=== PATIENT | male | born 1990 | race Caucasian/White ===

== ENCOUNTER 2018-08-22 19:49 | Observation (INO) ==
[2018-08-22] MEDS: 0.9 % Sodium Chloride 1,000 ML IVC SCH ×2 (21:45→22:24)
--- NOTE | 2018-08-22 21:46 | Emergency Department Note ---
Disposition Clinical Impression: Dehydration, Alcoholism Acute renal failure (ARF) Qualifiers: Acute renal failure type: unspecified Qualified Code(s): N17.9 - Acute kidney failure, unspecified Hepatitis C Qualifiers: Viral hepatitis chronicity: acute Hepatic coma status: without hepatic coma Qualified Code(s): B17.10 - Acute hepatitis C without hepatic coma Disposition: Admitted As Inpatient Condition: Fair Referrals: Anaya Melo MD [Primary Care Provider] - Forms: ED Satisfaction Letter Time of Disposition: 22:55 General Adult HPI - General Chief complaint: ED Nausea/Vomiting/Diarrhea Stated complaint: Shaking / Dehydration-NV Time Seen by Provider: 08/22/18 21:07 Source: patient Limitations: no limitations Nursing Notes Reviewed: Yes Vital Signs Reviewed: Yes - History of Present Illness HPI Narrative: He was working outside and got overheated and left work at 4:00 and wanted to try to rehydrate with fluids as well as with Gatorade but every time he drank he vomited and now he has generalized shaking. He does have a history of alcoholism as well as liver failure last year. He does not have any blood in the vomit, urine or stool. No known fevers but he did feel cold. He does not have any chest pain or shortness of breath. Social history: Smoker, alcohol, no drugs Pain Scale: 3 - Related Data Home Medications Medication Instructions Recorded Confirmed No Known Home Drugs 08/22/18 08/22/18 Allergies Allergy/AdvReac Type Severity Reaction Status Date / Time Penicillins Allergy Hives Verified 08/22/18 19:53 All systems ED: reviewed and negative except as stated. Past Medical History - Past Medical History Medical history: Reports: asthma, other Surgical history: Reports: no surgical history Psychiatric history: Reports: no psych history - Social History Smoking Status: Current every day smoker Smokeless Tobacco Status: No Alcohol use: Reports: heavy, recent Drug use: Reports: marijuana Physical Exam CONSTITUTIONAL: Alert and oriented X3, breathing comfortably, generalized tremulous appearance HEAD: Normocephalic; atraumatic. EYES: PERRL, no scleral icterus. NOSE: The nose is normal in appearance without rhinorrhea RESP: Normal chest excursion with respiration; breath sounds clear and equal bilaterally; no wheezes, rhonchi, or rales CARD: Regular rhythm, without murmurs, rub or gallop ABD: Non-distended; non-tender, soft,without rigidity, rebound or guarding SKIN: Normal for age and race; warm and dry; no apparent lesions - General Limitations: no limitations General appearance: alert Course Vital Signs Temperature 98 F 08/22/18 19:57 Pulse Rate 130 08/22/18 19:57 Respiratory Rate 24 08/22/18 19:57 Blood Pressure 148/98 08/22/18 19:57 O2 Sat by Pulse Oximetry 96 08/22/18 19:57 Temperature 98 F 08/22/18 19:57 Pulse Rate 130 08/22/18 19:57 Respiratory Rate 24 08/22/18 19:57 Blood Pressure 148/98 08/22/18 19:57 O2 Sat by Pulse Oximetry 96 08/22/18 19:57 Oxygen Delivery Oxygen Delivery Room Air Medical Decision Making - MDM Narrative Medical decision making narrative: I do have labs ordered including liver function tests and coags and ammonia level and the patient will receive 2 L IV fluid bolus, likely these effects are from the heat. Patient is otherwise bright and alert and well in appearance. I will reassess the patient. [id number] I did review the patient's test results a does have acute renal failure with significantly elevated creatinine level and he has not had this based on past creatinine levels that we have checked and for that reason the patient will be admitted for IV fluids and recheck. Does also some metabolic acidosis with a low serum bicarbonate level. I did see him again. Concern is the only dehydration but also his concomitant alcoholism and history of hepatitis C. He does have a primary care doctor but has not seen a ore digger. Patient will be admitted to the hospital. The hospitalist is paged. 1 I did speak with the hospitalist accepts the patient for admission. I did write for maintenance fluids. The patient has received 2 L IV fluid bolus. With this other medical problems will have her admitted and can follow his renal failure. This is likely prerenal from dehydration from the heat. [id number] - Medical Records Medical records reviewed: Yes I reviewed the patient's medical records. - Lab Data Lab results reviewed: Yes I reviewed the patient's lab results. Result diagrams: 08/22/18 21:29 08/22/18 21:30 Lab Results 08/22/18 08/22/18 08/22/18 Range/Units 21:29 21:30 21:30 WBC 16.2 H (4.3-11.1) K/mcL RBC 5.25 (4.19-5.50) M/mcL Hgb 18.2 H (12.9-16.9) g/dL Hct 51.1 H (37.5-50.1) % MCV 97.3 (83.0-100.0) fL MCH 34.7 H (28.0-33.3) pg MCHC 35.6 H (31.6-35.5) g/dL RDW 12.3 (11.5-14.5) % Plt Count 269 (140-400) K/mcL MPV 10.1 (9.4-12.4) fL PT (9.4-12.1) Seconds INR Sodium 136 (136-145) mEq/L Potassium 4.2 (3.5-5.1) mEq/L Chloride 94 L (98-107) mEq/L Carbon Dioxide 18 L (23-29) mEq/L BUN 12 (6-20) mg/dL Creatinine 1.63 H (0.70-1.30) mg/dL Est GFR ( Amer) > 60 (> 60) Est GFR (Non-Af Amer) 50 L (> 60) BUN/Creatinine Ratio 7 (6-26) Glucose 118 H (70-105) mg/dL Calculated Osmolality 283 (280-300) Lactic Acid (0.5-2.2) mmol/L Calcium 11.7 H (8.6-10.3) mg/dL Total Bilirubin 1.2 H (0.3-1.0) mg/dL Direct Bilirubin 0.3 H (0.0-0.2) mg/dL Indirect Bilirubin 0.9 (0.0-1.2) mg/dL AST 153 H (13-39) Units/L ALT 146 H (7-52) Units/L Alkaline Phosphatase 77 (34-104) Units/L Ammonia 53 (16-53) mcmol/L Serum Total Protein 10.0 H (6.4-8.9) g/dL Albumin 5.6 (3.5-5.7) g/dL Globulin 4.4 H (2.4-3.5) g/dL Albumin/Globulin Ratio 1.3 (1.1-2.2) Lipase 18 (11-82) Units/L 08/22/18 08/22/18 Range/Units 21:30 21:34 WBC (4.3-11.1) K/mcL RBC (4.19-5.50) M/mcL Hgb (12.9-16.9) g/dL Hct (37.5-50.1) % MCV (83.0-100.0) fL MCH (28.0-33.3) pg MCHC (31.6-35.5) g/dL RDW (11.5-14.5) % Plt Count (140-400) K/mcL MPV (9.4-12.4) fL PT 10.8 (9.4-12.1) Seconds INR 1.0 Sodium (136-145) mEq/L Potassium (3.5-5.1) mEq/L Chloride (98-107) mEq/L Carbon Dioxide (23-29) mEq/L BUN (6-20) mg/dL Creatinine (0.70-1.30) mg/dL Est GFR ( Amer) (> 60) Est GFR (Non-Af Amer) (> 60) BUN/Creatinine Ratio (6-26) Glucose (70-105) mg/dL Calculated Osmolality (280-300) Lactic Acid 3.6 H (0.5-2.2) mmol/L Calcium (8.6-10.3) mg/dL Total Bilirubin (0.3-1.0) mg/dL Direct Bilirubin (0.0-0.2) mg/dL Indirect Bilirubin (0.0-1.2) mg/dL AST (13-39) Units/L ALT (7-52) Units/L Alkaline Phosphatase (34-104) Units/L Ammonia (16-53) mcmol/L Serum Total Protein (6.4-8.9) g/dL Albumin (3.5-5.7) g/dL Globulin (2.4-3.5) g/dL Albumin/Globulin Ratio (1.1-2.2) Lipase (11-82) Units/L
[2018-08-22 21:55] LABS: Prothrombin Time 10.8 Seconds (9.4-12.1)
[2018-08-22 22:04] LABS: BUN/Creatinine Ratio 7 (6-26); Blood Urea Nitrogen 12 mg/dL (6-20); Carbon Dioxide 18 mEq/L (23-29); Chloride 94 mEq/L (98-107); Glucose 118 mg/dL (70-105); Potassium 4.2 mEq/L (3.5-5.1); Sodium 136 mEq/L (136-145); eGFR For African Americans > 60 (> 60); eGFR For Non-African Americans 50 (> 60)
[2018-08-22 22:05] LABS: Alanine Aminotransferase 146 Units/L (7-52); Albumin 5.6 g/dL (3.5-5.7); Albumin/Globulin Ratio 1.3 (1.1-2.2); Alkaline Phosphatase 77 Units/L (34-104); Aspartate Amino Transferase 153 Units/L (13-39); Bilirubin,Direct 0.3 mg/dL (0.0-0.2); Bilirubin,Indirect 0.9 mg/dL (0.0-1.2); Bilirubin,Total 1.2 mg/dL (0.3-1.0); Calcium 11.7 mg/dL (8.6-10.3); Globulin 4.4 g/dL (2.4-3.5); Lipase 18 Units/L (11-82); Osmolality,Calculated 283 (280-300)
[2018-08-22 22:25] LABS: Hematocrit 51.1 % (37.5-50.1); Hemoglobin 18.2 g/dL (12.9-16.9); Mean Corpuscular HGB Conc 35.6 g/dL (31.6-35.5); Mean Corpuscular Hemoglobin 34.7 pg (28.0-33.3); Mean Corpuscular Volume 97.3 fL (83.0-100.0); Mean Platelet Volume 10.1 fL (9.4-12.4); Platelet Count 269 K/mcL (140-400); Red Blood Count 5.25 M/mcL (4.19-5.50); Red Cell Distribution Width 12.3 % (11.5-14.5); White Blood Count 16.2 K/mcL (4.3-11.1)
[2018-08-22] MEDS ORDERED: 0.9 % Sodium Chloride 1,000 ML IVC ONE (23:27)
[2018-08-23] MEDS: 0.9 % Sodium Chloride 1,000 ML IVC SCH ×5 (00:07→00:30)
[2018-08-23 01:50] LABS: Bilirubin,Urine Small (Negative); Blood,Urine Negative (Negative); Clarity,Urine Cloudy (Clear); Color,Urine Yellow (Yellow); Glucose,Urine (UA) Normal (Normal); Ketones,Urine 15 mg/dL (Negative); Leukocyte Esterase,Urine Negative (Negative); Nitrite,Urine Negative (Negative); Protein,Urine 100 mg/dL (Neg-Trace); Specific Gravity,Urine 1.008 (1.010-1.025); Urobilinogen,Urine Normal (Normal)
[2018-08-23 01:53] LABS: Bacteria,Urine None Seen per hpf (None-Few); Squamous Epithelial Cell,Urine Many per lpf (None-Few)
[2018-08-23 02:05] LABS: Hyaline Casts,Urine Many per lpf (None-Few); Yeast,Urine Few per hpf (None Seen)
[2018-08-23] MEDS ORDERED: *HR* LORazepam 2 MG/ML VIAL IVP PRN ×3 (04:51)
[2018-08-23] MEDS ORDERED: Naloxone 0.4 MG/ML INJ IVP PRN (06:01)
--- NOTE | 2018-08-23 06:08 | Internal Med History&Physical ---
Date of Encounter: 08/23/18 Time of Encounter: 05:47 Internal Medicine - H&P: HPI Chief complaint: KWASI Admitted From: Emergency Dept Plans for Post Hospital Care: Home History of present illness: Mr. Goodman is a 28 year old male Patient presented to the emergency room with vomiting, weakness and shakes that began after he got off work at around 4 PM. 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 He did not drink very much fluids today. He has a history of alcoholism as well as hepatitis C. Last year he had similar presentation to this and came to the emergency department and was eventually transferred to [facility] for acute liver failure. He was worried that this is happening to him again so he came to the ER for further evaluation. In the ER patient's initial vital signs demonstrated a heart rate of 130, respiratory rate of 24 CBC was notable for white count of 16.2 BMP showed a creatinine of 1.63 and a GFR of 50 Initial lactic acid was 3.6 Total bilirubin 1.2 AST 153 ALT 146 Alkaline phosphatase 77 Ammonia 53 Urinalysis: Small bilirubin, negative nitrite, negative leukocyte esterase, 5-15 white blood cells. Chest x-ray showed no acute cardiopulmonary process Patient received 1 L of IV fluids, and was admitted to the hospital for further management. Upon my evaluation, patient is resting comfortably in the hospital bed in no acute distress. He denies chest pain, dull pain, nausea, vomiting, diarrhea and constipation. He is a heavy alcohol user, stating he drinks about 18 beers per day. He also smokes about 1-2 packs of cigarettes daily. He denies significant family medical history, aside from his mother having lupus. He does not know his father. He is a DNR/DNI. He does not take any medications regularly aside from an albuterol inhaler on occasion. Past Med Surg Social Fam HX - Past Medical History Medical history: asthma, other Additional medical history: liver failure Psychiatric history: no psych history - Past Surgical History Surgical History: appendectomy - Social History Smoking Status: Current every day smoker Packs per day: 1.5 Smokeless Tobacco Status: No Alcohol use: heavy, recent Drug use: marijuana - Family History Mother Hx Family Autoimmune Disorders: Yes (LUPUS) Internal Medicine - H&P: Meds No Known Home Drugs 08/22/18 [History] Allergy/AdvReac Type Severity Reaction Status Date / Time Penicillins Allergy Hives Verified 08/22/18 19:53 All Systems PM: A 10-system review of systems was performed and is negative for pertinent findings except as documented above in the HPI. - Constitutional Vitals: Temp Pulse Resp BP Pulse Ox 98.2 F 89 16 115/75 96 08/23/18 05:18 08/23/18 05:18 08/23/18 05:18 08/23/18 05:18 08/23/18 05:18 General appearance: Present: cooperative, A&O X 3, pleasant, no acute distress, answers questions appropriately Exam: - - Head Head exam: Present: normal inspection - Eye Eye exam: Present: EOMI, normal appearance - Respiratory Respiratory exam: Present: wheezes. Absent: CTAB, rales, respiratory distress, rhonchi - Cardiovascular Cardiovascular exam: Present: RRR. Absent: diastolic murmur, systolic murmur - GI/Abdominal GI/Abdominal exam: Present: normal bowel sounds, soft. Absent: tenderness - Extremities Exam Extremities exam: Present: warm, radial pulses palpable and symmetrical. Absent: pedal edema, tenderness Additional comments: Upper extremity tremor bilaterally - Neurological Exam Neurological exam: Present: no focal deficits, strengths equal and symetr throughout. Absent: motor sensory deficit, facial droop, speech deficit Additional comments: Tremor bilaterally in upper extremities - Skin Skin exam: Present: dry, normal color, warm Additional comments: Redness of sun exposed skin Internal Med - H&P Results - Labs CBC & Chem 7: 08/22/18 21:29 08/22/18 21:30 Labs: Short CBC 08/22/18 Range/Units 21:29 WBC 16.2 H (4.3-11.1) K/mcL Hgb 18.2 H (12.9-16.9) g/dL Hct 51.1 H (37.5-50.1) % Plt Count 269 (140-400) K/mcL BMP 08/22/18 21:30 Sodium 136 Potassium 4.2 Chloride 94 L Carbon Dioxide 18 L BUN 12 Creatinine 1.63 H Glucose 118 H Calcium 11.7 H Liver Function 08/22/18 Range/Units 21:30 Total Bilirubin 1.2 H (0.3-1.0) mg/dL Direct Bilirubin 0.3 H (0.0-0.2) mg/dL AST 153 H (13-39) Units/L ALT 146 H (7-52) Units/L Alkaline Phosphatase 77 (34-104) Units/L Albumin 5.6 (3.5-5.7) g/dL Urine 08/23/18 Range/Units 01:25 Urine Color Yellow (Yellow) Urine Clarity Cloudy A (Clear) Urine pH 7.0 (5.0-8.0) pH Units Ur Specific [place] 1.008 L (1.010-1.025) Urine Protein 100 H (Neg-Trace) mg/dL Urine Glucose (UA) Normal (Normal) mg/dL - Impressions ITS Impressions Chest X-Ray 08/22/18 21:09 IMPRESSION: No acute cardiopulmonary process. D/ / Alexi Puentes MD / Alexi Puentes MD Interpreting Provider: Alexi Puentes MD - Assessment and Plan (1) Acute renal failure (ARF) Current Visit: Yes Status: Acute Assessment and plan: Likely secondary to dehydration. Patient initially had elevated lactic acid, creatinine, white count as well as heart rate/respiratory rate. Likely all related to dehydration. Patient was given 1 L of IV fluids and was started on IV fluids at 150 per hour. Repeat labs in the morning Continue to monitor vital signs Qualifiers: Acute renal failure type: unspecified Qualified Code(s): N17.9 - Acute kidney failure, unspecified (2) Nicotine abuse Current Visit: Yes Status: Acute Assessment and plan: Patient smokes 1-2 packs of cigarettes daily. Declines nicotine patch (3) Alcoholism Current Visit: Yes Status: Acute Assessment and plan: Patient last drank about 24 hours ago. He is a heavy alcohol user, drinking about 18 beers a day. He is demonstrating slight tremor in his upper extremities. He has been through withdrawal before. [facility] protocol Cardiac monitoring Consider giving patient beer if his stay is prolonged to help prevent severe withdrawal (4) Hepatitis C Current Visit: Yes Status: Acute Assessment and plan: Slightly elevated liver enzymes, improved from previous from visit in August of last year. Continue to monitor Qualifiers: Viral hepatitis chronicity: chronic Hepatic coma status: without hepatic coma Qualified Code(s): B18.2 - Chronic viral hepatitis C (5) DVT prophylaxis Current Visit: Yes Status: Acute Assessment and plan: SCDs - Time Spent With Patient Total time spent is greater than 50% in coordination of care (as documented) at patient's floor/unit and/or counseling patient: Greater than 35 minutes
[2018-08-23] MEDS ORDERED: 0.9 % Sodium Chloride 1,000 ML IVC ONE (06:15)
[2018-08-23 06:48] VITALS: BP 118/74
[2018-08-23 07:32] LABS: Hematocrit 44.4 % (37.5-50.1); Mean Corpuscular HGB Conc 35.1 g/dL (31.6-35.5); Mean Corpuscular Hemoglobin 35.5 pg (28.0-33.3); Mean Corpuscular Volume 100.9 fL (83.0-100.0); Mean Platelet Volume 10.7 fL (9.4-12.4); Platelet Count 225 K/mcL (140-400); Red Cell Distribution Width 12.5 % (11.5-14.5); White Blood Count 10.6 K/mcL (4.3-11.1)
[2018-08-23 07:37] LABS: Alanine Aminotransferase 109 Units/L (7-52); Albumin 4.7 g/dL (3.5-5.7); Albumin/Globulin Ratio 1.5 (1.1-2.2); Alkaline Phosphatase 64 Units/L (34-104); Aspartate Amino Transferase 111 Units/L (13-39); BUN/Creatinine Ratio 12 (6-26); Bilirubin,Total 0.8 mg/dL (0.3-1.0); Blood Urea Nitrogen 12 mg/dL (6-20); Calcium 9.5 mg/dL (8.6-10.3); Carbon Dioxide 21 mEq/L (23-29); Chloride 100 mEq/L (98-107); Globulin 3.2 g/dL (2.4-3.5); Glucose 89 mg/dL (70-105); Osmolality,Calculated 283 (280-300); Potassium 4.3 mEq/L (3.5-5.1); Sodium 137 mEq/L (136-145); Total Protein 7.9 g/dL (6.4-8.9); eGFR For African Americans > 60 (> 60); eGFR For Non-African Americans > 60 (> 60)
[2018-08-23 07:38] LABS: Hemoglobin 15.6 g/dL (12.9-16.9)
[2018-08-23] MEDS ORDERED: Folic Acid 1 MG TABLET PO SCH (09:00)
[2018-08-23] MEDS ORDERED: Vitamin B Complex/Vit C/Vit E 1 EACH TABLET PO SCH (09:00)
--- NOTE | 2018-08-23 11:11 | Discharge Summary ---
- NOTES TO OUTPATIENT PROVIDER Notes to Outpatient Provider: Patient was hospitalized after presenting to the ER with complaints of vomiting, weakness and rigors. He was found to be mildly dehydrated with mild acute kidney injury. He also had mild transaminitis. He was hospitalized and treated with IV fluids. He is now doing much better. His feels that his back to his baseline. His renal function has also improved to normal. He is tolerating oral diet well. He is stable to be discharged home today. Date of Encounter: 08/23/18 Time of Encounter: 11:08 - Discharge Diagnosis (1) Acute renal failure (ARF) Priority: Primary Status: Resolved Qualifiers: Acute renal failure type: unspecified Qualified Code(s): N17.9 - Acute kidney failure, unspecified (2) Hepatitis C Priority: Secondary Status: Acute Qualifiers: Viral hepatitis chronicity: chronic Hepatic coma status: without hepatic coma Qualified Code(s): B18.2 - Chronic viral hepatitis C (3) Alcoholism Priority: Secondary Status: Acute (4) DVT prophylaxis Priority: Secondary Status: Acute (5) Nicotine abuse Priority: Secondary Status: Acute Hospital course: Mr. Goodman is a 28 year old male Patient with history of hepatitis C and chronic alcohol abuse was hospitalized after presenting to the ER with complaints of vomiting, weakness and rigors. He was found to be mildly dehyd rated with mild acute kidney injury. He also had mild transaminitis. He was hospitalized and treated with IV fluids. He is now doing much better. His feels that his back to his baseline. His renal function has also improved to normal. He is tolerating oral diet well. He is stable to be discharged home today. Patient has been counseled about alcohol cessation especially given his history of hepatitis C. He will be referred to infectious disease for further management of his hepatitis C. He was monitored for alcohol withdrawal but did not have episodes of alcohol withdrawal and did not require benzodiazepine treatment. Patient was discharged within 8 hours after admission Discharge discussed with: patient - Time Spent with Patient Total time spent providing and/or coordinating discharge services: Time spent: Less than 30 minutes (15 min) - Discharge Medications Prescriptions: New Vitamin B Complex/Vit C/Vit E [Stresstab] 1 each PO DAILY tablet No Action Ibuprofen [Ibu-200] 400 - 600 mg PO DAILY PRN PRN Reason: Headache Home Medications: Ibuprofen [Ibu-200] 400 - 600 mg PO DAILY PRN 08/23/18 [History] Vitamin B Complex/Vit C/Vit E [Stresstab] 1 each PO DAILY tablet 08/23/18 [Rx] Allergies/Adverse Reactions: Allergy/AdvReac Type Severity Reaction Status Date / Time Penicillins Allergy Hives Verified 08/23/18 12:23 Date of admission: 08/22/18 23:42 Primary care physician: Anaya Melo MD Consults: 08/23/18 04:51 Consult to Environmental Analyst [CONS] Routine Reason for SW Consult: Alcoholism Discharging clinician: Darrion Pratt Anticipated date of discharge: 08/23/18 - Constitutional Vitals: Temp Pulse Resp BP Pulse Ox 98.0 F 73 15 118/74 96 08/23/18 06:45 08/23/18 06:45 08/23/18 06:45 08/23/18 06:45 08/23/18 06:45 General appearance: Present: cooperative, A&O X 3, pleasant, no acute distress, answers questions appropriately Exam: General: Patient is alert, no acute distress, oriented x 3 Respiratory: Good respiratory effort. Normal breath sounds. No wheezing or crackles. Cardiovascular: Regular rate and rhythm. s1 and s2 normal No clicks, rubs, gallops, or murmurs. No pedal edema Abdomen: Abdomen is soft, nontender. Bowel sounds are present Neuro: Alert oriented x 3 normal cranial nerves, no focal deficits - Patient Status Disposition: Home, Self-Care Condition: Good Functional capacity at discharge: independent ambulation Overall status at discharge: patient is progressing back to baseline - Discharge Instructions Instructions: Acute Kidney Injury (DC), Renal Failure Diet (DC), Abuse of Alcohol (DC) Follow Up With: Anaya Melo MD [Primary Care Provider] - (in 1 week) Christianne Martínez MD [Partnered Physician] - (Appointment has been requested. Office will call you with appointment date and time.) - Diet and Activity Activity: increase activity as tolerated Diet: advance to your usual diet
[2018-08-23] MEDS ORDERED: Thiamine (B-1) 100 MG, Folic Acid 1 MG, MVI, adult with vitamin K 10 ML in 0.9 % Sodi... IVPB SCH (18:00)
== END 2018-08-23 12:29 | disposition home or self-care (01) ==
LOC: EMEROOARM 19:49 → 3BNU 19:49
PROVIDERS: ADMIT Pediatrics; ATTEND Pediatrics

== ENCOUNTER 2019-08-11 20:18 | Observation (INO) ==
[2019-08-11] MEDS ORDERED: 0.9 % Sodium Chloride 1,000 ML IVC ONE (21:48)
[2019-08-11] MEDS ORDERED: Thiamine (B-1) 100 MG, Folic Acid 1 MG in 0.9 % Sodium Chloride 50 ML IVPB ONE (21:48)
[2019-08-11] MEDS ORDERED: Folic Acid 1 MG in 0.9 % Sodium Chloride 50 ML IVPB ONE (21:48)
[2019-08-11] MEDS ORDERED: Ondansetron 4 MG/2 ML VIAL IVP ONE (21:58)
[2019-08-11 22:27] LABS: Basophils # 0.1 K/mcL (0.0-0.2); Basophils % 1.5 %; Eosinophils # 0.1 K/mcL (0.0-0.6); Eosinophils % 1.5 %; Hematocrit 45.4 % (37.5-50.1); Immature Granulocytes % 0.5 % (0-4); Lymphocytes # 1.5 K/mcL (0.6-4.6); Lymphocytes % 24.6 %; Mean Corpuscular HGB Conc 35.2 g/dL (31.6-35.5); Mean Corpuscular Hemoglobin 35.3 pg (28.0-33.3); Mean Corpuscular Volume 100.2 fL (83.0-100.0); Mean Platelet Volume 9.8 fL (9.4-12.4); Monocytes # 0.6 K/mcL (0.0-1.3); Monocytes % 9.7 %; Neutrophils # 3.7 K/mcL (1.6-8.9); Platelet Count 131 K/mcL (140-400); Red Blood Count 4.53 M/mcL (4.19-5.50); Red Cell Distribution Width 12.6 % (11.5-14.5); Segmented Neutrophils % 62.2 %
[2019-08-11 22:33] LABS: INR 0.9; Prothrombin Time 10.7 Seconds (9.4-12.1)
[2019-08-11 22:53] LABS: Alanine Aminotransferase 139 Units/L (7-52); Albumin 4.9 g/dL (3.5-5.7); Albumin/Globulin Ratio 1.4 (1.1-2.2); Alkaline Phosphatase 61 Units/L (34-104); Aspartate Amino Transferase 187 Units/L (13-39); BUN/Creatinine Ratio 7 (6-26); Bilirubin,Direct 0.2 mg/dL (0.0-0.2); Bilirubin,Indirect 0.5 mg/dL (0.0-1.0); Bilirubin,Total 0.7 mg/dL (0.3-1.0); Blood Urea Nitrogen 5 mg/dL (6-20); Calcium 9.2 mg/dL (8.6-10.3); Carbon Dioxide 15 mEq/L (23-29); Chloride 90 mEq/L (98-107); Ethanol 306 mg/dL (Less than 10); Globulin 3.4 g/dL (2.4-3.5); Glucose 64 mg/dL (70-105); Lipase 25 Units/L (11-82); Magnesium 1.4 mg/dL (1.6-2.6); Osmolality,Calculated 261 (280-300); Potassium 3.7 mEq/L (3.5-5.1); Sodium 128 mEq/L (136-145); Total Protein 8.3 g/dL (6.4-8.9); Troponin I < 0.03 ng/mL (< 0.04); eGFR For African Americans > 60 (> 60); eGFR For Non-African Americans > 60 (> 60)
[2019-08-12] MEDS ORDERED: *HR* LORazepam 2 MG/ML VIAL IVP STA (00:04)
[2019-08-12 01:13] LABS: Bilirubin,Urine Negative (Negative); Blood,Urine Negative (Negative); Clarity,Urine Clear (Clear); Color,Urine Yellow (Yellow); Glucose,Urine (UA) Normal (Normal); Ketones,Urine 15 mg/dL (Negative); Leukocyte Esterase,Urine Negative (Negative); Nitrite,Urine Negative (Negative); PH,Urine 6.5 pH Units (5.0-8.0); Protein,Urine 30 mg/dL (Neg-Trace); Urobilinogen,Urine Normal (Normal)
[2019-08-12 01:21] LABS: Bacteria,Urine Few per hpf (None-Few); RBC,Urine 0-3 per hpf (0-3)
[2019-08-12] MEDS: 0.9 % Sodium Chloride 1,000 ML IVC SCH ×4 (01:27→11:56)
[2019-08-12 01:30] LABS: Amphetamine Screen,Urine Negative ng/mL (Cutoff=1000); Barbiturate Screen,Urine Negative ng/mL (Cutoff=200); Benzodiazepines Screen,Urine Negative ng/mL (Cutoff=200); Cannabinoid Screen,Urine Positive ng/mL (Cutoff = 50); Cocaine Screen,Urine Negative ng/mL (Cutoff= 300); Opiate Screen,Urine Negative ng/mL (Cutoff=300); Phencyclidine Screen,Urine Negative ng/mL (Cutoff=25)
[2019-08-12] MEDS ORDERED: *HR* Promethazine 25 MG/ML VIAL IVP PRN (01:32)
[2019-08-12] MEDS ORDERED: Naloxone 0.4 MG/ML INJ IVP PRN (01:32)
[2019-08-12 03:32] LABS: Hematocrit 44.3 % (37.5-50.1); Hemoglobin 15.5 g/dL (12.9-16.9); Mean Corpuscular Hemoglobin 35.3 pg (28.0-33.3); Mean Corpuscular Volume 100.9 fL (83.0-100.0); Mean Platelet Volume 10.1 fL (9.4-12.4); Platelet Count 143 K/mcL (140-400); Red Blood Count 4.39 M/mcL (4.19-5.50); Red Cell Distribution Width 12.8 % (11.5-14.5)
[2019-08-12 03:33] LABS: INR 0.9; Prothrombin Time 10.7 Seconds (9.4-12.1)
[2019-08-12 03:50] LABS: Alanine Aminotransferase 117 Units/L (7-52); Albumin 4.5 g/dL (3.5-5.7); Albumin/Globulin Ratio 1.6 (1.1-2.2); Alkaline Phosphatase 52 Units/L (34-104); Aspartate Amino Transferase 142 Units/L (13-39); BUN/Creatinine Ratio 6 (6-26); Bilirubin,Total 0.7 mg/dL (0.3-1.0); Blood Urea Nitrogen 4 mg/dL (6-20); Calcium 8.5 mg/dL (8.6-10.3); Carbon Dioxide 18 mEq/L (23-29); Chloride 98 mEq/L (98-107); Globulin 2.9 g/dL (2.4-3.5); Glucose 57 mg/dL (70-105); Magnesium 1.6 mg/dL (1.6-2.6); Osmolality,Calculated 273 (280-300); Phosphorous 4.1 mg/dL (2.7-4.5); Sodium 134 mEq/L (136-145); Total Protein 7.4 g/dL (6.4-8.9); eGFR For African Americans > 60 (> 60); eGFR For Non-African Americans > 60 (> 60)
[2019-08-12] MEDS ORDERED: Folic Acid 1 MG TABLET PO SCH (09:00)
[2019-08-12] MEDS ORDERED: Thiamine (B-1) 100 MG TABLET PO SCH (09:00)
[2019-08-12 16:57] LABS: BUN/Creatinine Ratio 10 (6-26); Blood Urea Nitrogen 8 mg/dL (6-20); Calcium 9.4 mg/dL (8.6-10.3); Carbon Dioxide 23 mEq/L (23-29); Chloride 100 mEq/L (98-107); Glucose 75 mg/dL (70-105); Osmolality,Calculated 275 (280-300); Potassium 4.9 mEq/L (3.5-5.1); Sodium 134 mEq/L (136-145); eGFR For African Americans > 60 (> 60); eGFR For Non-African Americans > 60 (> 60)
[2019-08-12 17:35] VITALS: BP 147/85
== END 2019-08-12 18:35 | disposition home or self-care (01) ==
LOC: EMEROOARM 20:18 → 3BNU 20:18
PROVIDERS: ADMIT Internal Medicine; ATTEND Internal Medicine